=== PATIENT | female | born 1955 | race Caucasian/White ===

== ENCOUNTER → 2023-01-31 | Outpatient (CLI) | payer OTHER ==
[~2023-01-31] MED LIST: ASPIRIN81 M1 PO; CARVEDILOL25 MG PO; FLUTICASONE-SA1 EAC4 INH; FUROSEMIDE20 M1 PO; GABAPENTIN100 M2 PO; LEVOFLOXACIN750 M2 PO; LORAZEPAM0.5 M1 PO; LOSARTAN POTAS100 M1 PO; LOVASTATIN40 MG PO; METFORMIN HYD1000 MG PO; PANTOPRAZOLE SO40 MG PO; POTASSIUM CHLO10 ME5 PO; PRISTIQ100 MG PO; PROVENTIL HFA6.7 GM INH; Synthroid,Levo25 MCG PO
[2023-01-31 11:02] LABS: BASO % 0.1 % (0.0-1.0); EOS # 0.1 10*3/uL (0.0-0.4); EOS % 0.7 % (1.0-4.0); HEMATOCRIT 34.8 % (37.0-47.0); LYMPH # 0.7 10*3/uL (1.3-4.4); MEAN CELL VOLUME 88.3 fl (81.0-99.0); MEAN CORPUSCULAR HGB 27.7 pg (27.0-31.0); MEAN CORPUSCULAR HGB CONC 31.3 g/dl (33.0-37.0); MONO # 0.7 10*3/uL (0.1-1.0); MONO % 8.8 % (3.0-9.0); NEUT % 81.1 % (47.0-73.0); PLATELET COUNT AUTOMATED 270 10*3/uL (130-400); RED BLOOD COUNT 3.94 10*6/uL (4.10-5.10); RED CELL DISTRI WIDTH 13.9 % (0-14.5); WHITE BLOOD COUNT 7.4 10*3/uL (4.8-10.8)
[2023-01-31 11:31] LABS: ALKALINE PHOSPHATASE 85 U/L (46-116); BUN 21 mg/dl (9-23); CHLORIDE 100 mmol/L (98-107); POTASSIUM 4.6 mmol/L (3.4-5.1); SGPT/ALT 10 U/L (10-49); TOTAL PROTEIN 6.5 gm/dL (6.0-8.0)
== END | disposition home or self-care (01) ==
LOC: LAB 10:28
PROVIDERS: ATTEND Internal Medicine Infectious Disease
DX: N39.0 Urinary tract infection, site not specified (principal)

== ENCOUNTER → 2023-05-21 | Outpatient (CLI) | payer OTHER | END | disposition home or self-care (01) | LOC: ORTHO 01:26 | PROVIDERS: ATTEND Orthopaedic Surgery | DX: M17.11 Unilateral primary osteoarthritis, right knee (principal); M25.761 Osteophyte, right knee ==

== ENCOUNTER → 2024-01-09 | Outpatient (CLI) | payer OTHER | END | disposition home or self-care (01) | LOC: ORTHO 03:59 | PROVIDERS: ATTEND Orthopaedic Surgery | DX: M17.11 Unilateral primary osteoarthritis, right knee (principal); M00.061 Staphylococcal arthritis, right knee; M25.761 Osteophyte, right knee ==

== ENCOUNTER → 2024-01-26 | Outpatient (CLI) | payer OTHER | END | disposition home or self-care (01) | LOC: ORTHO 02:00 | PROVIDERS: ATTEND Orthopaedic Surgery | DX: M17.12 Unilateral primary osteoarthritis, left knee (principal); M25.562 Pain in left knee ==